=== PATIENT | male | born 1970 | race African-American/Black ===

== ENCOUNTER 2017-03-30 03:32 | Emergency (ER) | payer OTHER ==
[~2017-03-30] VITALS: Ht 180.3 cm; Wt 109.1 kg
[~2017-03-30 03:32] MED LIST: OXYC1TAB24 PO
[2017-03-30 03:39] VITALS: BP 152/94; PULSE 79; RESP 17; O2SAT 97
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
[2017-03-30] MEDS ORDERED: Dexamethasone 20 mg/2 mL Oral Solution PO ONE (04:45)
[2017-03-30] MEDS ORDERED: Indomethacin 25 mg Capsule PO ONE (04:45)
[2017-03-30] MEDS ORDERED: INDO50CA PO (04:47)
[2017-03-30] MEDS ORDERED: ALLO300T2 PO (04:47)
[2017-03-30] MEDS ORDERED: OMEP20TA86 PO (04:47)
[2017-03-30 04:48] LABS: BASOPHILS % (AUTO) 0.2 % (0-3); EOSINOPHILS % (AUTO) 3.4 % (0-5); MONOCYTES % (AUTO) 8.6 % (4-12); Mean Corpuscular Hemoglobin 28.6 pg (27.0-35.0); Mean Corpuscular Volume 84.8 fL (81-100); NEUTROPHILS % (AUTO) 51.5 % (40-74); Platelet Count 272 bil/L (150-400)
[2017-03-30] MEDS ORDERED: HYDR-4003 PO (04:48)
[2017-03-30 05:14] VITALS: BP 152/94; PULSE 79; RESP 16; O2SAT 97
[2017-03-30] MEDS ORDERED: HYDROcodone-APAP 5-325 mg Tablet PO ONE (05:30)
== END 2017-03-30 05:07 | disposition home or self-care (01) ==
LOC: SED 03:32
DX: M10.9 Gout, unspecified (principal); I10 Essential (primary) hypertension; F17.200 Nicotine dependence, unspecified, uncomplicated